=== PATIENT | male | born 1980 | race Caucasian/White ===

== ENCOUNTER 2017-08-23 12:12 | Emergency (ER) | payer MEDICAID ==
[2017-08-23 12:23] VITALS: BMI 34.9
[2017-08-23 12:25] VITALS: RESP 17
--- NOTE | 2017-08-23 13:28 | ED PDOC ---
HPI: Chest Pain Time Seen by Provider: 08/23/17 12:58 Chief Complaint (Nursing): Chest Pain Chief Complaint (Provider): CP History Per: Patient History/Exam Limitations: no limitations Onset/Duration Of Symptoms: Hrs (13) Current Symptoms Are (Timing): Still Present Additional Complaint(s): Pt reports sharp L sided CP that started @ 6 AM today, worse with movement and deep breaths. Denies fever, SOB, nausea, vomiting, palpitations, similar sxs in past. Past Medical History Reviewed: Nursing Documentation, Vital Signs Vital Signs: Last Vital Signs Temp 99.1 F 08/23/17 12:24 Pulse 91 H 08/23/17 12:24 Resp 17 08/23/17 12:24 BP 151/116 H 08/23/17 12:24 Pulse Ox 96 08/23/17 14:34 - Medical History PMH: No Chronic Diseases - Family History Family History: States: Unknown Family Hx - Social History Current smoker - smoking cessation education provided: No Alcohol: None Drugs: Cannabis - Home Medications Home Medications: Ambulatory Orders Medication Instructions Recorded Naproxen [Naprosyn] 500 mg PO BID PRN #15 tablet 08/23/17 - Allergies Allergies/Adverse Reactions: Allergies Allergy/AdvReac Type Severity Reaction Status Date / Time No Known Allergies Allergy Verified 08/23/17 12:35 QUYNH Risk Score for UA/NSTEMI - QUYNH Risk Score Age > 64: NO 3 or more CAD Risk Factors: NO Known CAD (Stenosis greater than 50%): NO Aspirin use in past 7 days: NO Severe Angina: NO EKG ST changes greater than 0.5mm: NO Positive Cardiac Marker: NO QUYNH Score: 0 Risk %: 5% Wells Criteria for PE - Wells Criteria for Pulmonary Embolism Clinical Signs and Symptoms of DVT: No P.E is #1 Diagnosis, or Equally Likely: No Heart Rate >100: No Immobilization at least 3 days;Surgery previous 4 weeks: No Previous, objectively diagnosed PE or DVT: No Hemoptysis: No Malignancy w/treatment within 6 months, or palliative: No Total Score: 0 Review of Systems Constitutional: Negative for: Fever, Chills Cardiovascular: Positive for: Chest Pain. Negative for: Palpitations Respiratory: Negative for: Cough, Shortness of Breath Gastrointestinal: Negative for: Nausea, Vomiting, Abdominal Pain, Diarrhea Genitourinary Male: Negative for: Dysuria, Hematuria Musculoskeletal: Negative for: Neck Pain, Back Pain Skin: Negative for: Rash, Lesions Neurological: Negative for: Weakness, Numbness, Headache, Dizziness Physical Exam - Reviewed Nursing Documentation Reviewed: Yes Vital Signs Reviewed: Yes - Physical Exam Appears: Positive for: Well, No Acute Distress Skin: Positive for: Normal Color, Warm, Dry Eye Exam: Positive for: Normal appearance, EOMI Cardiovascular/Chest: Positive for: Regular Rate, Rhythm, Chest Non Tender Respiratory: Positive for: Normal Breath Sounds. Negative for: Rales, Rhonchi, Wheezing Gastrointestinal/Abdominal: Positive for: Normal Exam, Bowel Sounds, Soft Extremity: Positive for: Normal ROM. Negative for: Tenderness, Swelling Neurologic/Psych: Positive for: Alert, Oriented - Laboratory Results Result Diagrams: 08/23/17 13:30 08/23/17 13:30 - ECG Interpretation Of ECG: NSR @ 95, no ST-T changes. O2 Sat by Pulse Oximetry: 96 Pulse Ox Interpretation: Normal Medical Decision Making Medical Decision Makin yo male with CP. - labs - EKG - CXR Accession No. : [id number] Patient Name / ID : EDGAR BUNDY / [id number] Exam Date : 08/23/2017 13:40:48 ( Approved ) Study Comment : Sex / Age : M / 36Y Creator : Chai Stuart MD Dictator : Health Science Writer : Furniture Removalist : Chai Stuart MD Approver2 : Report Date : 08/23/2017 13:55:52 My Comment : HISTORY: CP COMPARISON: No prior TECHNIQUE: Chest PA and lateral FINDINGS: LUNGS: Minor right basilar bibasilar atelectasis right greater than left. Mild right apical pleural thickening. PLEURA: As above. No significant pleural effusion identified. No pneumothorax apparent. Pleural thickening. CARDIOVASCULAR: Normal. OSSEOUS STRUCTURES: No significant abnormalities. VISUALIZED UPPER ABDOMEN: Normal. OTHER FINDINGS: None. IMPRESSION: Minor bibasilar atelectasis right greater than left. Disposition - Clinical Impression Clinical Impression: Atypical chest pain - Disposition Referrals: [facility] [Outside] Disposition: Routine/Home Disposition Time: 15:45 Condition: STABLE Additional Instructions: FOLLOW-UP WITH PMD WITHIN 2 DAYS FOR REEVALUATION. Prescriptions: Naproxen [Naprosyn] 500 mg PO BID PRN #15 tablet PRN Reason: Pain, Moderate (4-7) Instructions: Chest Pain Forms: [facility] (Martiniquais), [facility] ED School/Work Excuse
[2017-08-23 13:41] LABS: BASO % 0.5 % (0.0-2.0); EOS % 0.3 % (0.0-4.0); HEMOGLOBIN 15.5 g/dL (12.0-18.0); LYMPH # 2.4 K/uL (1.0-4.3); LYMPH % 34.1 % (20.0-40.0); MEAN CELL VOLUME 89.7 fl (80.0-94.0); MEAN CORPUSCULAR HEMOGLOBIN 30.8 pg (27.0-31.0); MEAN CORPUSCULAR HGB CONC 34.4 g/dL (33.0-37.0); MEAN PLATELET VOLUME 8.8 fl (7.2-11.7); MONO # 0.4 K/uL (0.0-0.8); MONO % 6.3 % (0.0-10.0); NEUT # 4.2 K/uL (1.8-7.0); NEUT % 58.8 % (50.0-75.0); NRBC % 0.2 % (0.0-0.0); RBC 5.02 Mil/uL (4.40-5.90); RED CELL DISTRIBUTION WIDTH 13.1 % (11.5-14.5); WHITE BLOOD COUNT 7.1 K/uL (4.8-10.8)
[2017-08-23 13:52] LABS: ALBUMIN 4.1 g/dL (3.5-5.0); ALT/SGPT 40 U/L (21-72); AST/SGOT 23 U/L (17-59); BLOOD UREA NITROGEN 8 mg/dl (9-20); CALCIUM 9.2 mg/dL (8.4-10.2); GFR AFRICAN-AMERICAN > 60; GFR NON-AFRICAN AMERICAN > 60
[2017-08-23 13:55] LABS: INR 1.1 (0.9-1.2); PARTIAL THROMBOPLASTIN TIME 34.5 Seconds (25.6-37.1)
--- NOTE | 2017-08-23 13:57 | RAD ---
HISTORY: CP COMPARISON: No prior TECHNIQUE: Chest PA and lateral FINDINGS: LUNGS: Minor right basilar bibasilar atelectasis right greater than left. Mild right apical pleural thickening. PLEURA: As above. No significant pleural effusion identified. No pneumothorax apparent. Pleural thickening. CARDIOVASCULAR: Normal. OSSEOUS STRUCTURES: No significant abnormalities. VISUALIZED UPPER ABDOMEN: Normal. OTHER FINDINGS: None. IMPRESSION: Minor bibasilar atelectasis right greater than left.
[2017-08-23 15:55] VITALS: BP 120/70; PULSE 75; TEMP 98; O2SAT 98
--- NOTE | 2017-08-23 19:07 | CARD ---
APPROVED REPORT EKG Measurement Heart [id number] <Conclusion> Normal sinus rhythm Possible Left atrial enlargement Borderline ECG
== END 2017-08-23 15:57 | disposition home or self-care (01) ==
LOC: H.ER 12:12
DX: R07.89 Other chest pain (principal)